=== PATIENT | male | born 1960 | race Caucasian/White ===

== ENCOUNTER 2016-09-21 07:55 | Emergency (ER) | payer OTHER ==
[~2016-09-21] VITALS: Ht 180.3 cm; Wt 80.7 kg
[2016-09-21 08:06] VITALS: BP 139/89
== END 2016-09-21 09:24 | disposition home or self-care (01) ==
LOC: ED 07:55
DX: T15.02XA Foreign body in cornea, left eye, initial encounter (principal); K21.9 Gastro-esophageal reflux disease without esophagitis; X58.XXXA Exposure to other specified factors, initial encounter; Y93.89 Activity, other specified; Y92.009 Unspecified place in unspecified non-institutional (private) residence as the place of occurrence of the external cause; Y99.8 Other external cause status

== ENCOUNTER 2019-03-03 16:50 | Inpatient (IN) | payer OTHER ==
[~2019-03-03] VITALS: Ht 180.3 cm; Wt 76.7 kg
[2019-03-03 17:18] VITALS: Ht 180.3 cm; Wt 76.7 kg
--- NOTE | 2019-03-03 17:43 | NUR ---
PER PT WAS ON A CRUISE LAST WEEK AND GOT A "VIRAL" INFECTION. PT STS THAT HE HAS DIVERTICULOSIS AND WAS DRINKING ON THE CRUISE. PT HAS COLIN LOWER ABDOMINAL PAIN. +N/V. PT STS HAS DYSURIA. PT STS THAT HE IS ALSO HAVING RECTAL BLEEDING FOR 2 DAYS. PT STS THAT THE BLOOD IN STOOL WAS BRIGHT RED AND IS NOW DARK RED. +BOWEL SOUNDS ALL 4 QUAD. PT IS ALERT AND ORIENTED, SPEAKING IN CLEAR AND FULL SENTENCES. VSS. RESP E/U. WILL CONTINUE TO MONITOR.
--- NOTE | 2019-03-03 18:11 | NUR ---
MEDICATED PER EMAR. LAB AT BEDSIDE.
--- NOTE | 2019-03-03 18:30 | NUR ---
PT TAKEN TO CT.
[2019-03-03 18:39] LABS: BASOPHIL % 0.3 % (0-2); PLATELET COUNT 185 x10^3mcL (130-400); RED CELL DISTRIBUTION WIDTH 12.7 % (11.5-14.5)
--- NOTE | 2019-03-03 18:41 | NUR ---
PT RETURNED FROM CT.
[2019-03-03 18:55] LABS: CARBON DIOXIDE 21.7 mmol/L (21-32); CHLORIDE SERUM 102 mmol/L (98-107); CREATININE SERUM 2.3 mg/dL (0.7-1.3); GFR1 31 mL/min; GLUCOSE SERUM 121 mg/dL (74-106); POTASSIUM SERUM 3.5 mmol/L (3.5-5.1); SODIUM SERUM 139 mmol/L (136-145)
[2019-03-03 19:00] LABS: ALKALINE PHOSPHATASE 120 U/L (46-116); ALT/SGPT 185 U/L (16-63); AST/SGOT 172 U/L (15-37); BILIRUBIN TOTAL 0.81 mg/dL (0.20-1.00); LIPASE 178 IU/L (73-393); TOTAL PROTEIN, SERUM 8.4 g/dL (6.4-8.2)
--- NOTE | 2019-03-03 19:13 | NUR ---
PT MEDICATED PER EMAR. VSS. RESP E/U. WILL CONTINUE TO MONITOR.
--- NOTE | 2019-03-03 19:14 | NUR ---
REPORT GIVEN TO SALONI COATES TO ASSUME CARE OF PT.
--- NOTE | 2019-03-03 19:35 | NUR ---
PT MOVED FROM 2B TO [facility] FOR CONTACT ISOLATION PRECAUTIONS. PT EDUCATED ABOUT POSSIBLE CAUSE OF ISOLATION, DR ARSHAD AT BEDSIDE FOR PLAN OF CARE UPDATE.
--- NOTE | 2019-03-03 20:45 | NUR ---
PT REQUESTING ADDITIONAL PAIN MEDICATION AT THIS TIME, DR ARSHAD AWARE. WAITING FOR ADDITIONAL ORDERS.
[2019-03-03] MEDS ORDERED: CYMBALTA30 M1 PO (20:47)
[2019-03-03] MEDS ORDERED: CIPRO500 MG PO (20:48)
[2019-03-03] MEDS ORDERED: FLA500 PO (20:48)
[2019-03-03] MEDS ORDERED: VIBERZI75 MG PO (20:48)
[2019-03-03] MEDS ORDERED: GOOD SENSE OMEP20 MG PO (20:49)
--- NOTE | 2019-03-03 22:36 | NUR ---
PT REPORT CALLED TO LAURA COATES TO ASSUME PT CARE. PER LAURA, ROOM IS NOT CLEAN AT THIS TIME AND WILL CALL WHEN ROOM IS AVAILABLE.
--- NOTE | 2019-03-03 22:44 | NUR ---
BED READY AT THIS TIME.
--- NOTE | 2019-03-03 22:47 | NUR ---
PT TRANSFERRED TO [address] BY [facility] BY [facility] EMT. PT ON CONTACT PRECAUTIONS FOR TRANSPORT. PT ACCEPTED BY LAURA COATES TO ASSUME PT CARE. PT AOX4, RESP EVEN AND UNLABORED, NO ACUTE DISTRESS NOTED. PT TRANSFERRED FROM [facility] TO BED WITHOUT INCIDENT.
[2019-03-03 23:10] VITALS: BP 124/89
--- NOTE | 2019-03-03 23:29 | NUR ---
RECEIVED PT FROM ER, PT ADMIT FOR ACUTE DIVERTICULITIS, PT IS A/O X4, VERBAL RESPONSIVE, LUNG SOUND CLEAR BILATERAL, NO COUGH, NO SOB, PT DENY ANY CHEST PAIN OR DISCOMFORT, BOWEL SOUND PRESENT ALL 4 QUADRANTS, HYPERACTIVE, NO DISTENTION, PT C/O ABD PAIN 7/10, AND DIARRHEA X 3 DAYS WITH BLOOD PRESENT IN THE STOOL. PEDAL PULSE PRESENT BOTH FEET, NO EDEMA, IV AT RIGTH AC, NO LEAKING, NO INFILTRAITON. ALL ADLS ASSIST, ALL NEED MET, CALL LIGHT IN REACH, WILL CONTINUE TO MONITOR.
--- NOTE | 2019-03-04 00:30 | NUR ---
HUNG D5NS AT THIS TIME INFUSING WELL AT 80ML/HR. PT C/O ABD PAIN, MEDICATED WITH MORPHINE ORDERED. ALL NEEDS TENDED TO. WILL CONTINUE TO MONITOR CLOSELY.
--- NOTE | 2019-03-04 03:55 | NUR ---
PT APPEARS TO BE SLEEPING IN NO DISTRESS. IVF ONGOING. CALL LIGHT WITHIN REACH. BED IS IN LOWEST POSITION. WILL CONTINUE TO MONITOR CLOSELY.
[2019-03-04 05:49] VITALS: BP 104/67
[2019-03-04 06:22] LABS: BASOPHIL % 0.2 % (0-2); PLATELET COUNT 177 x10^3mcL (130-400); RED CELL DISTRIBUTION WIDTH 12.8 % (11.5-14.5)
--- NOTE | 2019-03-04 06:30 | NUR ---
PT SLEPT ON AND OFF THROUGH OUT THE NIGHT. IVF ONGOING. CALL LIGHT WITHIN REACH. BED IS IN LOWEST POSITION. WILL ENDORSE TO INCOMING SHIFT.
[2019-03-04 06:50] LABS: BILIRUBIN TOTAL 0.42 mg/dL (0.20-1.00); CALCIUM 8.1 mg/dL (8.5-10.1); CARBON DIOXIDE 23.1 mmol/L (21-32); CREATININE SERUM 2.3 mg/dL (0.7-1.3); MAGNESIUM 2.2 mg/dL (1.8-2.4); POTASSIUM SERUM 3.7 mmol/L (3.5-5.1); TOTAL PROTEIN, SERUM 6.7 g/dL (6.4-8.2)
--- NOTE | 2019-03-04 07:10 | NUR ---
RECIEVED PT RESTING IN BED WITH NO C/O ANY DISTRESS OR PAIN AT THIS TIME. A/O X4 WITH NO PALACIOS OR DIZZINESS. NOC NURSE REPORTS PT HAS DIARRHEA, STOOL SAMPLE ALREADY TAKEN AND RESULTS PEGNDING. D5NS 80ML/HR RUNNING IN RAC, IV INTACT AND PATENT WITH NO REDNESS. SAFETY PRECAUTIONS IN PLACE, CALL LIGHT WITHIN REACH, WILL MONITOR.
[2019-03-04 08:47] VITALS: BP 98/69
--- NOTE | 2019-03-04 11:05 | NUR ---
MORPHINE GIVEN PER EMAR FOR ABD PAIN OF 8/10, WILL REASSESS.
--- NOTE | 2019-03-04 14:47 | NUR ---
PT STABLE. SAFETY PRECAUTIONS IN PLACE, CALL LIGHT WITHIN REACH, WILL MONITOR.
[2019-03-04 16:19] VITALS: BP 110/74
--- NOTE | 2019-03-04 17:00 | NUR ---
IV TO RAC REMOVED D/T LEAKING. STARTED NEW IV ON LEFT FOREARM AND STARTED CIPRO IV AGAIN. 10 MINUTES LATER CAME BACK TO CHECK ON PT AND NOTICED RED ERYTHMA TO VEIN AND NOT TO SURROUNDING AREA (APPROX 2.5 INCHES). IMMEDIATLY STOPPED THE IV PUMP AND REMOVED THE IV. PT REPORTED NO SOB, ITCHING, OR DISTRESS. CHARGE NOTIFIED AND ASSESSED PT. DURING CHARGE ASSESSMENT OF SITE, THE VEIN ERYTHMA WAS ALREADY SUBSIDING AND GOING BACK TO NORMAL. DR ENRIQUE NOTIFIED OF POSSIBLE REACTION TO CIPRO AND D/C'D MEDICATION. ENDORSED TO NIGHT NURSE TO MONITOR SIGHT.
[2019-03-04 17:14] LABS: microscopic required? NO
[2019-03-04 17:22] LABS: urine erythrocyte NEGATIVE (NEGATIVE)
--- NOTE | 2019-03-04 17:33 | NUR ---
ZOFRAN GIVEN PER EMAR FOR C/O NAUSEA, WILL REASSESS.
--- NOTE | 2019-03-04 17:52 | NUR ---
PT STABLE WITH NO C/O PAIN OR DISTRESS. TOLERATED ALL CARES WELL. VS WNL. A/O X4 WITH NO C/O PALACIOS OR DIZZINESS. D5NS 80ML/HR RUNNING IN RAC, INTACT AND PATENT WITH NO REDNESS OR INFLAMMATION NOTED. SAFETY PRECAUTIONS IN PLACE, CALL LIGHT WITHIN REACH, WILL ENDORSE TO NIGHT NURSE.
--- NOTE | 2019-03-04 19:30 | NUR ---
PT IS A/O X4. ON MED SURG. DENIES ANY CHEST PAIN OR PRESSURE. PULSES ARE PRESENT. NO EDEMA NOTED. LUNGS CLEAR IN ALL FEILDS. ON RA, DENIES ANY SOB. EQAUL CHEST RISE AND FALL. NO SIGN OF RESP DISTRESS. BOWEL SOUNDS ARE PRESENT. PT COMPLAINS OF OCCASIONAL NAUSEA BUT NOT AT THIS MOMENT. PT COMPLAINS OF DIARRHEA. SKIN IS INTACT. DENIES ANY PAIN AT THIS TIME. NO IV ACCESS. PER PT THE LAST IV ON THE LFA TURNED RED WHILE RECIEVING A MEDICATION AND IT HAD TO BE REMOVED. LFA IS NORMAL TO PT COLOR WITH NO INFLAMMATION NOTED. WILL MONITOR AND INSERT A NEW IV. BED IS AT LOWEST SETTING. CALL LIGHT WITHIN REACH. WILL CONTINUE TO MONTIOR.
--- NOTE | 2019-03-04 19:50 | NUR ---
RESOURCE NURSE INSERTED A 20G ON RFA. FLUSHING FREELY. FLUIDS WERE RESUMED. WILL MONITOR IV SITE.
[2019-03-04 20:19] VITALS: BP 114/72
--- NOTE | 2019-03-05 00:49 | NUR ---
PT IS RESTING IN BED. DENIES ANY PAIN OR DISTRESS. IV INTACT AND PATENT. SITE IS WNL. NO ERYTHEMA NOTED ON LFA. BED IS AT LOWEST SETTING. CALL LIGHT WITHIN REACH. WILL CONTINUE TO MONITOR.
[2019-03-05 04:23] VITALS: BP 108/73
--- NOTE | 2019-03-05 06:10 | NUR ---
PT AWOKE WITH ALOT OF ABD PAIN. 10/10, SHARP, NON RADIATING. MORPHINE WAS GIVEN PER EMAR. NO OTHER COMPLAINTS. DENIES ANY N/V. IV SITE INTACT AND PATENT. NO SIGN OF INFILTRATION OR IRRITATION. LFA IS WNL, NO ABNORMALITY NOTED. BED IS AT LOWEST SETTING. CALL LIGHT WITHIN REACH. WILL ENDORSE TO AM NURSE.
[2019-03-05 06:19] LABS: BASOPHIL % 0.3 % (0-2); PLATELET COUNT 182 x10^3mcL (130-400); RED CELL DISTRIBUTION WIDTH 12.8 % (11.5-14.5)
[2019-03-05 06:32] LABS: CALCIUM 8.1 mg/dL (8.5-10.1); CARBON DIOXIDE 23.3 mmol/L (21-32); PHOSPHOROUS 3.6 mg/dL (2.5-4.9); POTASSIUM SERUM 4.2 mmol/L (3.5-5.1)
[2019-03-05 06:33] LABS: BILIRUBIN DIRECT 0.09 mg/dL (0.0-0.2); BILIRUBIN TOTAL 0.37 mg/dL (0.20-1.00); TOTAL PROTEIN, SERUM 6.5 g/dL (6.4-8.2)
[2019-03-05 06:52] LABS: ALBUMIN 2.9 g/dL (3.4-5.0)
--- NOTE | 2019-03-05 07:05 | NUR ---
RECEIVED PT FROM SEAN VIGIL. PT AA/OX4 LAYING IN BED. NO S/S OF ACUTE DISTRESS. FOLLOWS COMPLEX COMMANDS, RESPONDS TO VERBAL STIMULI. FACE SYMMETRICAL. SPEECH CLEAR. DENIES ABD. PAIN AT THIS TIME. DENIES N/V AT THIS TIME. TOLERATING CLEAR LIQUID DIET WELL. PASSING GAS RECTALLY/ORALLY. NO BM TODAY. VOIDS FREELY. IV WNL TO RFA, 20 GAUGE. PATENT AND FLUSHES WELL. IV FLUDIS FLOWING. MED SURG. NO COMPLAINT OF PAIN. NO SOB ON ROOM AIR. RR EVEN/UNLABORED. CALM/COOPERATIVE. INSTRUCTED TO USE CALL LIGHT TO CALL FOR ASSISTANCE PRN. VERBALIZED UNDERSTANDING. WILL CONTINUE TO MONITOR.
[2019-03-05 08:32] VITALS: BP 112/81
--- NOTE | 2019-03-05 11:00 | NUR ---
PT AA/OX4. NO S/S OF ACUTE DISTRESS. SITTING IN CHAIR BY WINDOW. DENIES PAIN AT THIS TIME. NO N/V. NO SOB ON ROOM AIR. NO CHEST PAIN. CALM/COOPERATIVE. VOIDS FREELY. URINE OUTPUT 1300CC, CLEAR/YELLOW. NO BM TODAY. BED IN LOW POSITION. CALL LIGHT WITHIN REACH. WILL CONTINUE TO MONITOR.
--- NOTE | 2019-03-05 13:50 | NUR ---
PT REPORTS NAUSEA/DIZZINESS AFTER MEALS. GIVEN IV MEDICATION FOR NAUSEA. IV WNL TO RFA, NO REDNESS, NO SWELLING, NO INFILTRATION. PATIENT LAYING IN BED. AA/OX4. NO S/S OF ACUTE DISTRESS. BED IN LOW POSITION. CALL LIGHT WITHIN REACH. WILL CONTINUE TO MONITOR.
[2019-03-05] MEDS ORDERED: LEVOFLOXACIN500 M1 PO (15:42)
[2019-03-05] MEDS ORDERED: FLA500 PO (15:42)
[2019-03-05] MEDS ORDERED: NORCO1 TA2 PO (15:42)
[2019-03-05] MEDS ORDERED: COLACE100 MG PO (15:43)
[2019-03-05 16:01] VITALS: BP 112/81
--- NOTE | 2019-03-05 16:21 | NUR ---
PT BEING DISCHARGED TO HOME. AWAKE, ALERT, ORIENTED X4. NO S/S OF ACUTE DISTRESS. DENIES ABD. PAIN AT THIS TIME. DENIES N/V. NO PALACIOS. NO DIZZINESS. NO FEVER. NO CHILLS. CALM/COOPERATIVE. DISCHARGE EDUCATION PROVIDED TO PT. INSTRUCTED TO FOLLOW UP WITH PCP WITHIN 1 WEEK. VERBALIZED UNDERSTANDING. NO SOB ON ROOM AIR. NO CHEST PAIN. PRESCRIPTIONS PROVIDED TO PT INCLUDING HYDROCODONE. BELONGINGS WITH PATIENT. IV REMOVED FROM RFA, CATHETER IN TACT. PRESSURE APPLIED. SITE WNL. PT WAITING FOR RIDE HOME. WILL MONITOR.
--- NOTE | 2019-03-05 16:46 | NUR ---
PT TAKEN TO DISCHARGE LOBBY BY VASU SCHAFER. PT AA/OX4. NO S/S OF ACUTE DISTRESS. BELONGINGS/PRESCRIPTIONS W/ PT. AMBULATORY WITH FULL ROM.
== END 2019-03-05 16:46 | disposition home or self-care (01) | DRG 391 ==
LOC: ED 16:50 → MU 21:35
PROVIDERS: Emergency Medicine; Internal Medicine Nephrology; Internal Medicine Pulmonary Disease; ADMIT Internal Medicine Pulmonary Disease
DX: K57.32 Diverticulitis of large intestine without perforation or abscess without bleeding (principal); N17.0 Acute kidney failure with tubular necrosis; D50.0 Iron deficiency anemia secondary to blood loss (chronic); E86.9 Volume depletion, unspecified; K21.9 Gastro-esophageal reflux disease without esophagitis; R05 Cough; R74.0 Nonspecific elevation of levels of transaminase and lactic acid dehydrogenase [LDH]; Z90.49 Acquired absence of other specified parts of digestive tract; Z68.22 Body mass index [BMI] 22.0-22.9, adult
CPT/HCPCS: 87046; 87046-59; G0378; J0744; J1644; J1885; J1956; J2270; J2405; J3010; J3490; J7030; J7042; Q0092